=== PATIENT | female | born 1975 | race Caucasian/White ===

== ENCOUNTER 2016-07-28 11:16 | Emergency (ER) | payer MEDICAID ==
[~2016-07-28] VITALS: Ht 160 cm; Wt 72.6 kg
[2016-07-28 11:20] VITALS: BP 136/80; PULSE 71; RESP 20; TEMP 97.8; O2SAT 99
--- NOTE | 2016-07-28 11:23 | NUR ---
Pt placed to ER bed 06. Report given to ANA Payne.
--- NOTE | 2016-07-28 11:25 | NUR ---
dr. messina at [facility] examining the pt.
--- NOTE | 2016-07-28 11:30 | NUR ---
pt. to the ER c/o left earache for 3 days, states that she does not know what triggered the pain, it goes away and comes back, took some pain medication but pain has been constant since this morning 11/16, lungs clear to auscultation, no facial edema, no redness noted, clear speech, denies headache, follows commands
[2016-07-28 11:45] VITALS: BP 132/78; PULSE 77; RESP 16; TEMP 98.6; O2SAT 99
[2016-07-28] MEDS ORDERED: KETOROLAC TROMETHAMINE 60 MG/2 ML VIAL IM ONE (11:45)
[2016-07-28] MEDS ORDERED: DEXAMETHASONE SOD PHOSPHATE 10 MG/ML VIAL IM ONE (11:45)
--- NOTE | 2016-07-28 11:50 | NUR ---
Patient given written and verbal discharge instructions and verbalizes understanding. ER MD dr. messina discussed with patient the results and treatment provided. Patient in stable condition. ID arm band removed. Rx of ibuprofen given. Patient educated on pain management and to follow up with PMD. Pain Scale 0/10 Opportunity for questions provided and answered.
== END 2016-07-28 11:45 | disposition home or self-care (01) ==
LOC: SED 11:16
DX: H60.92 Unspecified otitis externa, left ear (principal); R03.0 Elevated blood-pressure reading, without diagnosis of hypertension; M54.30 Sciatica, unspecified side
CPT/HCPCS: 96372; 99284; J1100; J1885

== ENCOUNTER 2016-11-21 21:12 | Emergency (ER) | payer MEDICAID ==
[~2016-11-21] VITALS: Ht 160 cm; Wt 70.3 kg
[2016-11-21 21:19] VITALS: BP_SYST 118
--- NOTE | 2016-11-21 21:25 | NUR ---
Patient to ER bed 7 to gown for evaluation. Side rails up. Report given to Debby Hightower.
--- NOTE | 2016-11-21 21:30 | NUR ---
Pt. to ER AAOx4 presented with back pain states that back pain is worse today since she ran out of her tramadol as prescribed by her Pain Management physician who is on vacation, clear speech follows commands c/o pain 03/18
--- NOTE | 2016-11-21 21:31 | NUR ---
Dr. Harp at bedside examining the pt.
[2016-11-21] MEDS ORDERED: KETOROLAC TROMETHAMINE 60 MG/2 ML VIAL IM ONE (21:45)
--- NOTE | 2016-11-21 21:52 | NUR ---
pt. medicated as per MD orders, IM shot to left deltoid tolerated well
[2016-11-21 22:19] VITALS: BP_SYST 121
--- NOTE | 2016-11-21 22:19 | NUR ---
Patient given written and verbal discharge instructions and verbalizes understanding. ER MD Dr. Harp discussed with patient the results and treatment provided. Patient in stable condition. ID arm band removed. Rx of naprosyn given. Patient educated on pain management and to follow up with PMD. Pain Scale 0/10 Opportunity for questions provided and answered.
== END 2016-11-21 22:19 | disposition home or self-care (01) ==
LOC: SED 21:12
DX: G89.29 Other chronic pain (principal); M54.9 Dorsalgia, unspecified; M54.30 Sciatica, unspecified side; Z88.6 Allergy status to analgesic agent
CPT/HCPCS: 96372; 99283; J1885

== ENCOUNTER 2022-08-27 11:10 | Emergency (ER) | payer MEDICAID ==
[~2022-08-27] VITALS: Ht 160 cm; Wt 74.8 kg
[2022-08-27 11:34] VITALS: BP_SYST 127
--- NOTE | 2022-08-27 11:38 | NUR ---
Placed in room 5 . Placed on athletic monitor, blood pressure machine and pulse oximeter. To gown for exam. Side rails up. Report given to Nino.
--- NOTE | 2022-08-27 11:39 | NUR ---
BIB SELF FROM HOME WITH C/O N/V AND BILATERAL FLANK FOR 3 DAYS. PT STATES HER PAIN RADIATES TO HER ABN. PT DENIES DYSURIA OR URINAIRY PROBLEMS. HX - GALLBLADDER SURGERY. ALLERGIES: PT IS ALLERTIG MOTRIN. PT AAXO4, VSS, NAD, BREATHING IS EVEN AND UNLABORED. PT AMBULATORY WITH STEADY GAIT. PT ON LINING STITCHER SHOWING NSR. HOB ELEVATED, SIDE RIALS UP, BED IN LOWEST POSITION,CALL LIGHT WITHIN REACH. SAFETY PRECUATIONS AND COMFORT MEASURES IN PLACE. PENDING MD CONTRERAS AND ORDERS.
--- NOTE | 2022-08-27 11:41 | NUR ---
DR. VILLANUEVA AT BEDSIDE EXAMINING THE PT.
[2022-08-27] MEDS ORDERED: KETOROLAC TROMETHAMINE 60 MG/2 ML VIAL IM ONE (11:45)
--- NOTE | 2022-08-27 11:45 | NUR ---
PT MEDICALLY CLEARED FOR D/C. D/C INSTRUCTIONS GIVEN TO PT. PT TO FOLLOW-UP WITH PCP WITHIN 1-3 DAYS AND TO RETURN TO ED FOR WORSENING S/S. PT VERBALIZED UNDERSTANDING. PT AAOX4, NAD, VSS, WRITSTBAND REMOVED. PT AMBULATORY WITH STEADY GAIT. PT LEFT WITH ALL BELONGINGS.
[2022-08-27 12:12] LABS: BASOPHILS % (AUTO) 0.4 % (0.0-2.0); EOSINOPHILS # (AUTO) 0.1 K/uL (0.0-0.4); EOSINOPHILS % (AUTO) 1.3 % (0.0-4.0); HEMATOCRIT 41.3 % (36-48); HEMOGLOBIN 13.8 g/dL (12.0-16.0); LYMPHOCYTES # (AUTO) 1.7 K/uL (1.0-5.5); LYMPHOCYTES % (AUTO) 30.1 % (20.5-51.5); MEAN CORPUSCULAR HEMOGLOBIN 30 pg (27-31); MEAN CORPUSCULAR HGB CONC 34 % (32-36); MEAN CORPUSCULAR VOLUME 89 fL (79.0-98.0); MONOCYTES # (AUTO) 0.4 K/uL (0.0-1.0); MONOCYTES % (AUTO) 7.4 % (1.7-9.3); NEUTROPHILS # (AUTO) 3.5 K/uL (1.8-7.7); NEUTROPHILS % (AUTO) 60.8 % (40.0-70.0); PLATELET COUNT (AUTO) 250 K/uL (130-430); RED BLOOD CELL COUNT(AUTO) 4.66 MIL/uL (4.2-6.2); RED CELL DISTRIBUTION WIDTH 14.3 % (9.0-15.0); WHITE BLOOD COUNT (AUTO) 5.7 K/uL (4.8-10.8)
[2022-08-27 12:23] LABS: CALCIUM 8.9 mg/dL (8.4-11.0); CREATININE 0.84 mg/dL (0.55-1.30); TOTAL BILIRUBIN 0.3 mg/dL (0.0-1.0)
[2022-08-27] MEDS ORDERED: ONDANSETRON 4 MG ODT TAB PO ONE (13:15)
[2022-08-27 13:47] LABS: BILIRUBIN,URINE NEGATIVE (NEGATIVE); BLOOD, URINE NEGATIVE (NEGATIVE); CLARITY/URINE CLEAR (CLEAR); COLOR,URINE YELLOW (YELLOW); GLUCOSE,URINE NEGATIVE (NEGATIVE); KETONES,URINE 1+ (NEGATIVE); LEUKOCYTE ESTERASE ,URINE NEGATIVE (NEGATIVE); NITRITE, URINE NEGATIVE (NEGATIVE); PH,URINE 5.5 (5.0-8.0); PROTEIN URINE NEGATIVE (NEGATIVE); UROBILINOGEN,URINE 0.2 (0.2-1.0)
[2022-08-27 14:08] VITALS: BP_SYST 119
[2022-08-27] MEDS ORDERED: TRAM50TA2 PO (15:23)
[2022-08-27] MEDS ORDERED: IBUP-1969 PO (15:23)
== END 2022-08-27 11:55 | disposition home or self-care (01) ==
LOC: SED 11:10
DX: R10.11 Right upper quadrant pain (principal); R11.2 Nausea with vomiting, unspecified; Z88.6 Allergy status to analgesic agent; Z79.899 Other long term (current) drug therapy
CPT/HCPCS: 99285; 74176; 80053; 83690; 85025; 36415; 76376; 96372; 81003; Q0162; J1885

== ENCOUNTER 2022-11-02 12:45 | Emergency (ER) | payer MEDICAID ==
[~2022-11-02] VITALS: Ht 160 cm; Wt 74.8 kg
[~2022-11-02 12:45] MED LIST: IBUP-1969 PO; TRAM50TA2 PO
[2022-11-02 12:52] VITALS: BP_SYST 162
--- NOTE | 2022-11-02 12:59 | NUR ---
PT TRIAGED AND PLACED IN ROOM 7. REPORT GIVEN TO SHERRI FLEMING. PT BIBS FOR C/O URINARY FREQUENCY, NAUSEA, BACK PAIN, CLOUDY, ODOROUS URINE.
--- NOTE | 2022-11-02 13:00 | NUR ---
Patient BIB self from home. Chief Complaint: Back pain and foul smelling urine in the am. Patient reports pain at 8/10. Patient stable A&ox4. Patient placed on the monitor.
--- NOTE | 2022-11-02 13:16 | NUR ---
Urine taken to lab
--- NOTE | 2022-11-02 13:16 | NUR ---
ER at bedside examining patient.
[2022-11-02 13:32] LABS: BILIRUBIN,URINE NEGATIVE (NEGATIVE); BLOOD, URINE NEGATIVE (NEGATIVE); CLARITY/URINE CLEAR (CLEAR); COLOR,URINE YELLOW (YELLOW); GLUCOSE,URINE NEGATIVE (NEGATIVE); KETONES,URINE NEGATIVE (NEGATIVE); LEUKOCYTE ESTERASE ,URINE NEGATIVE (NEGATIVE); NITRITE, URINE NEGATIVE (NEGATIVE); PROTEIN URINE NEGATIVE (NEGATIVE); UROBILINOGEN,URINE 0.2 (0.2-1.0)
[2022-11-02 13:48] LABS: BASOPHILS % (AUTO) 0.5 % (0.0-2.0); EOSINOPHILS # (AUTO) 0.1 K/uL (0.0-0.4); EOSINOPHILS % (AUTO) 1.1 % (0.0-4.0); HEMATOCRIT 38.1 % (36-48); HEMOGLOBIN 13.1 g/dL (12.0-16.0); LYMPHOCYTES # (AUTO) 1.7 K/uL (1.0-5.5); LYMPHOCYTES % (AUTO) 25.2 % (20.5-51.5); MEAN CORPUSCULAR HEMOGLOBIN 30 pg (27-31); MEAN CORPUSCULAR HGB CONC 34 % (32-36); MEAN CORPUSCULAR VOLUME 89 fL (79.0-98.0); MONOCYTES # (AUTO) 0.4 K/uL (0.0-1.0); MONOCYTES % (AUTO) 5.9 % (1.7-9.3); NEUTROPHILS # (AUTO) 4.4 K/uL (1.8-7.7); NEUTROPHILS % (AUTO) 67.3 % (40.0-70.0); PLATELET COUNT (AUTO) 253 K/uL (130-430); RED BLOOD CELL COUNT(AUTO) 4.29 MIL/uL (4.2-6.2); RED CELL DISTRIBUTION WIDTH 14.2 % (9.0-15.0); WHITE BLOOD COUNT (AUTO) 6.6 K/uL (4.8-10.8)
--- NOTE | 2022-11-02 14:00 | NUR ---
Patient taken to CT
[2022-11-02 14:01] LABS: ANION GAP 8 (5-15); CALCIUM 8.3 mg/dL (8.4-11.0); CHLORIDE 105 mmol/L (98-107); CREATININE 0.83 mg/dL (0.55-1.30); GFR AFRICAN AMERICAN 94 mL/min (>90); GLUCOSE 115 mg/dL (70-99); UREA NITROGEN, BLOOD 10 mg/dL (8-21)
[2022-11-02 14:05] LABS: ALANINE AMINOTRANSFERASE 21 U/L (12-78); ALBUMIN 3.9 g/dL (3.4-4.8); AMYLASE 54 U/L (0-100); ASPARTATE AMINOTRANSFERASE 14 U/L (10-37); LIPASE 71 U/L (73-393); TOTAL BILIRUBIN 0.4 mg/dL (0.0-1.0)
[2022-11-02 14:08] LABS: C-REACTIVE PROTEIN QUANT < 0.2 mg/dL (0-0.5)
[2022-11-02] MEDS ORDERED: NITR-85 PO (14:36)
[2022-11-02] MEDS ORDERED: TRAM50TA2 PO (14:36)
[2022-11-02 14:51] VITALS: BP_SYST 164
== END 2022-11-02 14:51 | disposition home or self-care (01) ==
LOC: SED 12:45
DX: M54.50 Low back pain, unspecified (principal); R30.0 Dysuria; R35.0 Frequency of micturition; R11.0 Nausea; Z88.6 Allergy status to analgesic agent; Z79.899 Other long term (current) drug therapy
CPT/HCPCS: 36415; 76376; 80053; 81003; 82150; 83605; 83690; 84703; 85025; 86140; 99284

== ENCOUNTER 2023-07-13 14:01 | Emergency (ER) | payer MEDICAID ==
[~2023-07-13] VITALS: Ht 160 cm; Wt 71.7 kg
[~2023-07-13 14:01] MED LIST changes: +NITR-85 PO
[2023-07-13 15:08] VITALS: BP_SYST 128; PULSE 77; RESP 18; TEMP 97.3; O2SAT 97
[2023-07-13 16:01] LABS: BILIRUBIN,URINE NEGATIVE (NEGATIVE); BLOOD, URINE NEGATIVE (NEGATIVE); CLARITY/URINE CLEAR (CLEAR); COLOR,URINE YELLOW (YELLOW); GLUCOSE,URINE NEGATIVE (NEGATIVE); KETONES,URINE NEGATIVE (NEGATIVE); LEUKOCYTE ESTERASE ,URINE NEGATIVE (NEGATIVE); NITRITE, URINE NEGATIVE (NEGATIVE); PH,URINE 7.5 (5.0-8.0); PROTEIN URINE NEGATIVE (NEGATIVE); UROBILINOGEN,URINE 0.2 (0.2-1.0)
[2023-07-13 17:08] LABS: CALCIUM 8.9 mg/dL (8.4-11.0); CREATININE 0.69 mg/dL (0.55-1.30); POTASSIUM 4.8 mmol/L (3.5-5.1)
[2023-07-13 17:09] LABS: BASOPHILS % (AUTO) 0.5 % (0.0-2.0); EOSINOPHILS % (AUTO) 0.8 % (0.0-4.0); HEMATOCRIT 40.6 % (36-48); HEMOGLOBIN 13.7 g/dL (12.0-16.0); LYMPHOCYTES # (AUTO) 1.8 K/uL (1.0-5.5); LYMPHOCYTES % (AUTO) 32.9 % (20.5-51.5); MEAN CORPUSCULAR HEMOGLOBIN 31 pg (27-31); MEAN CORPUSCULAR HGB CONC 34 % (32-36); MEAN CORPUSCULAR VOLUME 91 fL (79.0-98.0); MONOCYTES # (AUTO) 0.4 K/uL (0.0-1.0); NEUTROPHILS # (AUTO) 3.2 K/uL (1.8-7.7); NEUTROPHILS % (AUTO) 58.8 % (40.0-70.0); PLATELET COUNT (AUTO) 328 K/uL (130-430); RED BLOOD CELL COUNT(AUTO) 4.48 MIL/uL (4.2-6.2); RED CELL DISTRIBUTION WIDTH 13.8 % (9.0-15.0); WHITE BLOOD COUNT (AUTO) 5.5 K/uL (4.8-10.8)
[2023-07-13 17:12] LABS: ALBUMIN 3.5 g/dL (3.4-4.8); BILIRUBIN,DIRECT 0.1 mg/dL (0.0-0.3); TOTAL BILIRUBIN 0.2 mg/dL (0.0-1.0); TOTAL PROTEIN, SERUM 6.4 g/dL (6.4-8.3)
[2023-07-13] MEDS ORDERED: OXYM15MI9 NS (18:43)
[2023-07-13] MEDS ORDERED: AUG875 PO (18:43)
[2023-07-13 18:52] VITALS: BP_SYST 128; PULSE 77; RESP 18; TEMP 97.3; O2SAT 97
== END 2023-07-13 18:52 | disposition home or self-care (01) ==
LOC: SED 14:01
DX: J32.9 Chronic sinusitis, unspecified (principal); K59.00 Constipation, unspecified; R74.01 Elevation of levels of liver transaminase levels; R35.0 Frequency of micturition; Z88.6 Allergy status to analgesic agent; Z79.899 Other long term (current) drug therapy
CPT/HCPCS: 36415; 76376; 80048; 80076; 81001; 81003; 81025; 82948; 83690; 85025; 99284

== ENCOUNTER 2023-11-05 10:44 | Emergency (ER) | payer SELFPAY ==
[~2023-11-05] VITALS: Ht 160 cm; Wt 74.8 kg
[~2023-11-05 10:44] MED LIST changes: +AUG875 PO; +OXYM15MI9 NS
[2023-11-05 10:45] VITALS: BP_SYST 143; PULSE 86; RESP 18; TEMP 97.5; O2SAT 98
[2023-11-05] MEDS: KETOROLAC TROMETHAMINE 60 MG/2 ML VIAL IM ONE (12:10)
[2023-11-05] MEDS ORDERED: HYDR-3917 PO (13:18)
[2023-11-05 14:33] VITALS: BP_SYST 150; PULSE 106; RESP 20; TEMP 98.3; O2SAT 96
== END 2023-11-05 14:53 | disposition home or self-care (01) ==
LOC: SED 10:44
DX: S16.1XXA Strain of muscle, fascia and tendon at neck level, initial encounter (principal); M54.50 Low back pain, unspecified; Z88.6 Allergy status to analgesic agent; Z79.899 Other long term (current) drug therapy; Z79.2 Long term (current) use of antibiotics; V89.2XXA Person injured in unspecified motor-vehicle accident, traffic, initial encounter; Y93.89 Activity, other specified; Y92.89 Other specified places as the place of occurrence of the external cause; Y99.8 Other external cause status
CPT/HCPCS: 99285; 72131; 72050; 72110; 96372; J1885